=== PATIENT | female | born 1985 | race Caucasian/White ===

== ENCOUNTER → 2017-01-12 | Outpatient (CLI) | payer OTHER ==
[2017-01-12 12:11] LABS: CH 31.7; HDW 3.07; HGB 12.2 gm/dL (11.4-16.0); MCH 30.9 pg (25.0-35.0); MCHC 33.9 g/dL (31.0-37.0); MCV 91.1 fL (80.0-100.0); Mean Platelet Volume 7.9; RBC 3.95 m/uL (3.80-5.40); RDW 13.8 % (11.5-15.5); WBC 12.5 k/uL (3.8-10.6)
== END | disposition home or self-care (01) ==
LOC: LABWHC1 10:43
PROVIDERS: ATTEND Obstetrics & Gynecology
DX: Z34.82 Encounter for supervision of other normal pregnancy, second trimester (principal); Z3A.00 Weeks of gestation of pregnancy not specified
CPT/HCPCS: 36415; 82950; 85027

== ENCOUNTER → 2017-01-30 | Outpatient (CLI) | payer OTHER ==
--- NOTE | 2017-01-30 15:36 | US ---
EXAMINATION TYPE: US OB anatomy transabd DATE OF EXAM: 01/30/2017 2:39 PM COMPARISON: NONE HISTORY: LGA TECHNIQUE: Transabdominal (TA) EXAM MEASUREMENTS: GESTATIONAL AGE / DATING Physician Established: (29 weeks/0 days) EDC: 04/17/17 Dates by LMP: unknown Dates by First Scan: (29 weeks/0 days) EDC: 04/17/17 Dates by Current Scan for: (28 weeks/6 days) EDC: 04/18/17 SURVEY PLACENTA: Posterior PREVIA: No previa MONICA: 14.6 cm CERVICAL LENGTH (transabdominal: norm > 3.0cm):4.0 cm BIOMETRY PRESENTATION: Breech LIE: Transverse lie with head maternal R BPD: 7.3 cm 29 weeks / 1 days HC: 26.7 cm 29 weeks / 1 days AC: cm weeks / days FL: cm weeks / days ESTIMATED WEIGHT IN GRAMS: 1358 grams ESTIMATED WEIGHT IN LBS/OZS: 3 lbs. 0 oz. WEIGHT PERCENTAGE BASED ON ESTABLISHED DATE: 45 % HC/AC: 1.1 FL/AC: 22.3 HEART RATE: 157 bpm RHYTHM: Normal ANATOMY SEEN (within normal limits): * Cisterna Magna (< 1.1 cm) 0.4 cm * Nuchal Fold (< 0.6 cm) 0.5 cm * Cerebellum (varies with age) 3.2 cm Midline Falx Four Chamber Heart Outflow tracts: LVOT/RVOT Stomach Diaphragm Kidneys (bilateral) Bladder Three Vessel Cord Longitudinal Spine Transverse Spine Arms (bilateral) Legs (bilateral) ANATOMY NOT SEEN: Due to position/shadowing of bones. Lateral Vent (< 1 cm) cm Cord Insert Situs Nose / Lips Cavus Septi Pellucidi Choroid Plexus (bilateral) IMPRESSION: 1. Viable of 28 weeks 6 days with a EDC of 04/18/2017. 2. Limited assessment of some of the structures of the internal anatomy.
== END | disposition home or self-care (01) ==
LOC: RADUSWWP 13:52
PROVIDERS: ATTEND Obstetrics & Gynecology
DX: O36.63X0 Maternal care for excessive fetal growth, third trimester, not applicable or unspecified (principal); Z3A.28 28 weeks gestation of pregnancy
CPT/HCPCS: 76811

== ENCOUNTER → 2017-03-13 | Outpatient (CLI) | payer OTHER ==
--- NOTE | 2017-03-13 13:10 | US ---
EXAMINATION TYPE: US OB anatomy transabd DATE OF EXAM: 03/13/2017 12:52 PM COMPARISON: US 09/17/2016 HISTORY: [id number] SMALL FOR DATES SGA TECHNIQUE: EXAM MEASUREMENTS: GESTATIONAL AGE / DATING Physician Established: (35 weeks/0 days) EDC: 04/17/2017 Dates by LMP: Unknown Dates by First Scan: (35 weeks/0 days) EDC: 04/17/2017 Dates by Current Scan for: (35 weeks/0 days) EDC: 04/17/2017 SURVEY IUP: Single PLACENTA: Lateral extending anterior and posterior PREVIA: No previa MONICA: 11.9 cm Normal CERVICAL LENGTH (transabdominal: norm > 3.0cm): 3.8 cm BIOMETRY PRESENTATION: Breech LIE: Longitudinal BPD: 8.8 cm 35 weeks / 2 days HC: 31.5 cm 35 weeks / 2 days AC: 30.7 cm 34 weeks / 5 days FL: 6.9 cm 35 weeks / 3 days ESTIMATED WEIGHT IN GRAMS: 2578 grams ESTIMATED WEIGHT IN LBS/OZS: 5 lbs. 11 oz. WEIGHT PERCENTAGE BASED ON ESTABLISHED DATE: 48 % HC/AC: 1.02 Normal FL/AC: 22.49 Normal HEART RATE: 149 bpm RHYTHM: Normal ANATOMY SEEN (within normal limits): Midline Falx Cavus Septi Pellucidi Outflow tracts: RVOT Diaphragm Kidneys (bilateral) Bladder Cord Insert Three Vessel Cord Longitudinal Spine ANATOMY NOT SEEN: Due to advanced age, position and shadowing from bones. * Lateral Vent (< 1 cm) cm * Cisterna Magna (< 1.1 cm) cm * Nuchal Fold (< 0.6 cm) cm * Cerebellum (varies with age) cm Choroid Plexus (bilateral) Four Chamber Heart Outflow tracts: LVOT Stomach Situs Nose / Lips Transverse Spine Arms (bilateral) Legs (bilateral) IMPRESSION: Single IUP measuring 35 weeks 0 days with a heart rate of 149 bpm and a calculated EDC of 04/17/2017 based on current ultrasound measurements.
== END | disposition home or self-care (01) ==
LOC: RADUSWWP 12:22
PROVIDERS: ATTEND Obstetrics & Gynecology
DX: O36.5930 Maternal care for other known or suspected poor fetal growth, third trimester, not applicable or unspecified (principal); Z3A.35 35 weeks gestation of pregnancy
CPT/HCPCS: 76811

== ENCOUNTER 2017-04-10 05:55 | Inpatient (IN) | payer OTHER ==
--- NOTE | 2017-04-09 06:25 | P.HPOB ---
History of Present Illness H&P Date: 04/09/17 Chief Complaint: Breech presentation This patient is a pleasant 31-year-old 2 para 1 female estimated date of confinement 04/17/2017 estimated gestational age 39-0/7 weeks gestation who presents to labor and delivery for IOL of external cephalic version for persistent breech presentation. Patient is also planning on proceeding with section today if unsuccessful. Patient's initial ultrasound indicated that she may have a bicornate are arcuate uterus. Inspection however had not known this previously and the repeat ultrasound at 20 weeks did not show any evidence of a septum. She's been persistent breech and she understands that if she does have a septum this may be why she is breech however we did discuss trial of version and I think this is appropriate this time since were plan on proceeding with delivery either way. otherwise has been uncomplicated. She does have a history of questionable IUGR/SGA in her previous however this has had normal growth ultrasounds. Review of Systems Constitutional: Denies chills, Denies fever Ears, nose, mouth and throat: Denies headache, Denies sore throat Cardiovascular: Denies chest pain, Denies shortness of breath Respiratory: Denies cough Gastrointestinal: Reports heartburn Genitourinary: Reports Menstruation: Reports amenorrhea Musculoskeletal: Denies myalgias Integumentary: Denies pruritus, Denies rash Neurological: Denies numbness, Denies weakness Psychiatric: Denies anxiety, Denies depression Endocrine: Denies fatigue, Denies weight change Past Medical History Past Medical History: No Reported History History of Any Multi-Drug Resistant Organisms: None Reported Past Surgical History: No Surgical Hx Reported Past Anesthesia/Blood Transfusion Reactions: No Reported Reaction Past Psychological History: No Psychological Hx Reported Smoking Status: Never smoker Past Alcohol Use History: None Reported Past Drug Use History: None Reported Medications and Allergies Allergies Allergy/AdvReac Type Severity Reaction Status Date / Time No Known Allergies Allergy Verified 04/09/17 06:20 Exam - OBG Physical Exam Abdomen: bowel sounds normal, no diffuse tenderness, no bruit present, no guarding noted, no hepatomegaly, no splenomegaly, no mass Vulva: both: normal Vagina: normal moisture, no discharge Cervix: no lesion (Cervix in the office was closed.), no discharge Uterus: enlarged (Fundal height is consistent with a term .) Results blood work shows she is a positive, rubella immune, RPR nonreactive, hepatitis B negative, Glucola was normal, group B strep was negative, patient had a first trimester ultrasound that indicated possible bicornate uterus however this was not seen on subsequent ultrasounds. Assessment and Plan (1) Third trimester Narrative/Plan: This is a pleasant 31-year-old 2 para 1 female 39-0/7 weeks gestation with persistent breech presentation. There is some question as to whether or not the patient has a uterine septum. Patient and I have discussed this in detail throughout the at this time she would like to try an attempted external cephalic version and if unsuccessful will proceed with section. Patient understands if she does have a uterine septum this may be why the baby is breech and in general this is an indication that the version will not be successful. We do have a successful version and most likely proceed with induction for favorable cervix at that time. I have discussed the use version and section in detail with the patient and she understands risks and benefits of both. Status: Acute (2) Breech presentation Status: Acute
[2017-04-10 06:20] VITALS: BMI 35.6
[2017-04-10] MEDS ORDERED: CITRIC ACID-SODIUM CITRATE 15 ML CUP PO ONE (06:37)
[2017-04-10] MEDS ORDERED: LACTATED RINGERS 1,000 ML IV ONE (06:37)
--- NOTE | 2017-04-10 06:37 | P.PN ---
Progress Note - Text Patient presented this morning for an attempted external cephalic version. position was confirmed by ultrasound, IV was placed, heart tones are reactive, 2 attempts were made an external cephalic version without success. Patient tolerated well. Per our discussion the office we'll proceed with section for delivery at this time.
[2017-04-10] MEDS ORDERED: LACTATED RINGERS 1,000 ML IV SCH (06:45)
[2017-04-10 06:55] LABS: Basophils % (A) 0 %; CHCM 33.9; Eosinophils # (A) 0.1 k/uL (0-0.7); Eosinophils % (A) 1 %; HCT 34.1 % (34.0-46.0); HDW 3.15; HGB 11.3 gm/dL (11.4-16.0); Luc % (Auto) 2; Lymphocytes # (A) 2.3 k/uL (1.0-4.8); Lymphocytes % (A) 25 %; MCH 29.4 pg (25.0-35.0); MCHC 33.1 g/dL (31.0-37.0); MCV 88.9 fL (80.0-100.0); Monocytes # (A) 0.7 k/uL (0-1.0); Monocytes % (A) 8 %; Neutrophils % (A) 65 %; RBC 3.83 m/uL (3.80-5.40); RDW 13.8 % (11.5-15.5); WBC 9.3 k/uL (3.8-10.6); WBC (Perox) 9.77
[2017-04-10] MEDS ORDERED: ceFAZolin 2 GM in SODIUM CHLORIDE 0.9% 100 ML IVPB ONE (11:45)
[2017-04-10] MEDS ORDERED: NALBUPHINE 10 MG/ML AMPUL ONE (11:59)
[2017-04-10] MEDS ORDERED: KETOROLAC 30 MG/ML 1 ML VIAL ONE (11:59)
[2017-04-10] MEDS ORDERED: MORPHINE SULFATE (PF) 0.3 MG/0.3 ML SYR ONE (11:59)
[2017-04-10] MEDS ORDERED: OXYTOCIN 10 UNIT/ML 1 ML VIAL ONE (11:59)
[2017-04-10] MEDS ORDERED: ONDANSETRON 4 MG/2 ML VIAL IVP PRN (12:18)
[2017-04-10] MEDS ORDERED: NALOXONE 0.4 MG/ML 1 ML VIAL IV PRN ×2 (12:18→13:32)
[2017-04-10] MEDS ORDERED: MORPHINE SULFATE 4 MG/ML SYRINGE IVP PRN (12:18)
[2017-04-10] MEDS ORDERED: diphenhydrAMINE 50 MG/ML 1 ML VIAL IVP PRN ×2 (12:18→13:32)
--- NOTE | 2017-04-10 12:48 | P.OP ---
Date of Procedure: 04/10/17 Preoperative Diagnosis: #1: 39 weeks gestation. #2: Persistent breech presentation. Possible uterine septum Postoperative Diagnosis: Same Procedure(s) Performed: Primary low transverse section Implants: Anesthesia: spinal Surgeon: Hans Castanon Corn Shucker #1: Berna Abreu Estimated Blood Loss (ml): 800 Pathology: other Condition: stable (Placenta) Disposition: floor Indications for Procedure: Please see dictated H&P for intimate details of this patient's admission. Brief summary is a pleasant 31-year-old 2 para 1 female 39 weeks gestation who presented to labor and delivery this morning for an attempted external cephalic version. There is also a question of a uterine septum. Version was unsuccessful and therefore she now presents for primary section due to persistent breech. Patient understands this surgery and risks including risks of infection, bleeding, possible injury to bowel, bladder, vessels, and/or other organs. All the patient's questions are answered and a written consent is obtained. Operative Findings: This is a vigorous viable female infant Apgars 9 and 9 delivery time is 1213 hrs. has spontaneous respirations and good cry and grossly appeared normal. There was approximately 3-4 cm midline uterine septum. Description of Procedure: This patient has a Alvarado catheter placed to straight drain. She subsequently taken to the operating room where she is sat up and spinal anesthetic is administered without incident. With an adequate level of anesthesia she has abdominal prep and drape. Scalpels then taken and a Pfannenstiel skin incision is then made. A second scalpel is taken down the fascia and the fascia scored with a knife. Fascial incision extended bilaterally using the Villalba scissors. Fascia is dissected off the rectus muscles sharply. Rectus muscles are and the peritoneum was identified and entered sharply. Peritoneal incision extended superior and inferior without difficulty. Bladder blade is then placed. Bladder peritoneum was taken sharply off the lower uterine segment. Scalpels and taken a low transverse uterine incision is then made. Using a hemostat I into the uterine cavity bluntly. There is loss of clear fluid. This incision is extended bluntly. Inspection of the uterine cavity shows a to be a complete breech presentation. The infant's feet her guided through the incision with fundal pressure we have delivery of the using the usual breech maneuvers. There was a nuchal cord 1. The 's umbilical cord is then doubly clamped and cut it appears to be trivascular. The placenta is then manually extracted intact. Uterus is then externalized and the uterine edges demarcated with Umanzor clamps. Inspect the uterine cavity is clear of all placental products however there is a 2-3 cm uterine septum. This is a midline in position. The uterine incision is then closed using 0 Vicryl running locked fashion in 2 layers. Added sutures are placed on the left side for excellent hemostasis. The bladder peritoneum was then reapproximated using a 3-0 Vicryl again good hemostasis is noted. Excess fluid is removed from the abdomen and pelvis. The tubes and ovaries appear normal for term gestation. Uterus placed back into the abdomen. Parietal peritoneum was then closed using 0 Vicryl running fashion. The rectus muscles reapproximated in 0 Vicryl interrupted fashion. Fascia is then closed using 0 PDS. Fascial incision is intact and hemostatic. Subcutaneous tissues and closed using a 3-0 Vicryl. Skin is and closed using alonso. Sterile dressing is applied. All counts are correct 3. There are no complications. and mother are then taken to the birthing suite in satisfactory condition.
[2017-04-10] MEDS ORDERED: OXYTOCIN 20 UNITS/1000 ML NS 1,000 ML IV SCH (13:32)
[2017-04-10] MEDS ORDERED: ZOLPIDEM 5 MG TAB PO PRN (13:32)
[2017-04-10] MEDS ORDERED: ACETAMINOPHEN TAB 325 MG TAB PO PRN (13:32)
[2017-04-10] MEDS ORDERED: Acetaminophen-Codeine 300-30mg TAB PO PRN ×2 (13:32)
[2017-04-10] MEDS ORDERED: diphenhydrAMINE 25 MG CAP PO PRN (13:32)
[2017-04-10] MEDS ORDERED: METOCLOPRAMIDE 5 MG/ML 2 ML VIAL IVP PRN (13:32)
[2017-04-10] MEDS: LACTATED RINGERS 1,000 ML IV SCH ×2 (14:25→17:43)
[2017-04-10] MEDS ORDERED: KETOROLAC 30 MG/ML 1 ML VIAL IVP PRN (18:21)
[2017-04-10] MEDS: SENNOSIDES-DOCUSATE SODIUM 1 EACH TAB PO SCH (22:43)
--- NOTE | 2017-04-11 06:25 | P.PNOBGPC ---
Subjective - Subjective Patient reports: Reports appetite normal, Reports voiding normally, Reports pain well controlled, Reports ambulating normally : doing well Objective - Vital Signs Latest vital signs: Vital Signs Temp Pulse Resp BP Pulse Ox 04/11/17 04:00 98.3 F 72 16 112/52 04/11/17 00:00 98.7 F 81 16 120/52 04/10/17 20:00 98.1 F 78 18 119/72 04/10/17 16:02 83 18 103/61 98 04/10/17 14:41 97.0 F L 85 18 125/60 100 04/10/17 14:11 60 19 105/61 100 04/10/17 13:41 69 19 108/63 98 04/10/17 13:26 71 16 104/63 97 04/10/17 13:19 97 04/10/17 13:11 73 18 106/62 97 04/10/17 12:56 75 16 107/63 98 04/10/17 12:41 96.8 F L 80 17 104/62 96 Intake and Output 04/10/17 04/10/17 04/11/17 14:59 22:59 06:59 Intake Total 600 Output Total 200 650 Balance -200 -50 Intake: Oral 600 Output: Urine 200 650 Other: Voiding Method Indwelling Catheter Indwelling Catheter - Exam Lungs: bilateral: normal Chest: Normal S1, Normal S2 Extremities: Present: normal Abdomen: Present: normal appearance, soft. Absent: distention, tenderness Incision: Present: normal, dry, intact Uterus: Present: normal, firm - Labs Labs: Abnormal Lab Results - Last 24 Hours (Table) 04/10/17 Range/Units 06:15 Hgb 11.3 L (11.4-16.0) gm/dL Assessment and Plan (1) Third trimester Narrative/Plan: Post day #1. Patient is resting without complaints. Vital signs are stable she is afebrile. Uterus is firm nontender she has normal lochia. Her incision is intact and dry. Impression is a normal postoperative course. Plan is to continue routine care, check a CBC, encourage ambulation, advance her diet. Current Visit: Yes Status: Acute Code(s): Z33.1 - STATE, INCIDENTAL SNOMED Code(s): 99390474 (2) Breech presentation Current Visit: Yes Status: Acute Code(s): O32.1XX0 - MATERNAL CARE FOR BREECH PRESENTATION, UNSP SNOMED Code(s): 8795340
[2017-04-11] MEDS: SENNOSIDES-DOCUSATE SODIUM 1 EACH TAB PO SCH ×2 (07:54→20:43)
[2017-04-11] MEDS: SIMETHICONE 80 MG CHEWABLE PO PRN ×2 (07:54→20:43)
[2017-04-11 09:28] LABS: Basophils % (A) 0 %; CH 29.6; CHCM 33.8; Eosinophils % (A) 0 %; HCT 31.5 % (34.0-46.0); HDW 3.13; HGB 10.7 gm/dL (11.4-16.0); Luc # (Auto) 0.15; Luc % (Auto) 1; Lymphocytes # (A) 1.5 k/uL (1.0-4.8); Lymphocytes % (A) 12 %; MCH 29.9 pg (25.0-35.0); Mean Platelet Volume 7.8; Monocytes # (A) 0.5 k/uL (0-1.0); Monocytes % (A) 4 %; Neutrophils # (A) 9.9 k/uL (1.3-7.7); Neutrophils % (A) 82 %; RBC 3.58 m/uL (3.80-5.40); RDW 13.9 % (11.5-15.5); WBC (Perox) 12.79
--- NOTE | 2017-04-11 11:15 | P.PN ---
Progress Note - Text 0705 Anesthesia POD 1. Patient is status post section under spinal anesthesia with intra-thecal preservative free morphine 300 g. Mild pruritus, good post-op analgesia, and no headache or other complication.
[2017-04-11] MEDS ORDERED: ONDANSETRON 4 MG/2 ML VIAL IVP PRN (12:00)
[2017-04-11] MEDS: IBUPROFEN 600 MG TAB PO PRN (20:43)
[2017-04-11 22:55] VITALS: RESP 18
--- NOTE | 2017-04-12 06:24 | P.PNOBGPC ---
Subjective - Subjective Patient reports: Reports appetite normal, Reports voiding normally, Reports pain well controlled, Reports ambulating normally : doing well Objective - Vital Signs Latest vital signs: Vital Signs Temp Pulse Resp BP Pulse Ox 04/12/17 00:00 84 18 04/11/17 22:53 98.1 F 84 18 123/69 04/11/17 16:00 97.6 F 78 20 114/67 98 04/11/17 12:00 97.6 F 76 20 114/68 98 04/11/17 08:00 98.2 F 76 20 114/63 98 Intake and Output 04/11/17 04/11/17 04/12/17 14:59 22:59 06:59 Intake Total 360 600 950 Balance 360 600 950 Intake: Oral 360 600 950 Other: Voiding Method Toilet Toilet # Voids 1 2 - Exam Lungs: bilateral: normal Chest: Normal S1, Normal S2 Extremities: Present: normal Abdomen: Present: normal appearance, soft. Absent: distention, tenderness Incision: Present: normal, dry, intact Uterus: Present: normal, firm - Labs Labs: Abnormal Lab Results - Last 24 Hours (Table) 04/11/17 Range/Units 09:05 WBC 12.0 H (3.8-10.6) k/uL RBC 3.58 L (3.80-5.40) m/uL Hgb 10.7 L (11.4-16.0) gm/dL Hct 31.5 L (34.0-46.0) % Neutrophils # 9.9 H (1.3-7.7) k/uL Assessment and Plan (1) Third trimester Narrative/Plan: Postoperative day #2. Patient is resting without complaints and wishes to go home. Vital signs are stable she is afebrile. Uterus is firm nontender she's having normal lochia. My impression this is a normal postoperative course. Plan is to continue routine postoperative care discharge home later today. Current Visit: Yes Status: Acute Code(s): Z33.1 - STATE, INCIDENTAL SNOMED Code(s): 27535492 (2) Breech presentation Current Visit: Yes Status: Acute Code(s): O32.1XX0 - MATERNAL CARE FOR BREECH PRESENTATION, UNSP SNOMED Code(s): 8551749
--- NOTE | 2017-04-12 06:28 | P.DS ---
Providers Date of admission: 04/10/17 05:55 Expected date of discharge: 04/12/17 Attending physician: Hans Castanon Primary care physician: Stated None - Discharge Diagnosis(es) (1) Third trimester Current Visit: Yes Status: Acute (2) Breech presentation Current Visit: Yes Status: Acute Hospital Course: Please see dictated H&P for intimate details of this patient's admission. Brief summary this is a pleasant 31-year-old 2 para 1 female 39 weeks gestation who is admitted for persistent breech presentation. Patient had an attempted cephalic version that was unsuccessful and subsequently underwent a primary low transverse section for viable female infant. Patient was noted to have a uterine septum at the time of delivery. By postoperative #2 patient's felt to be stable for discharge home follow up with me in 1 week. Procedures: Primary low transverse section. Patient Condition at Discharge: Good Plan - Discharge Summary New Discharge Prescriptions: Acetaminophen-Codeine 300-30mg [Tylenol w/codeine #3] 1 - 2 each PO Q4HR PRN # 40 tab PRN Reason: Mild Pain Ibuprofen [Motrin] 600 mg PO Q6HR PRN #40 tab PRN Reason: Mild Pain Or Fever >= 100.5 Discharge Medication List Pnv,Calcium 72/Iron/Folic Acid [ Plus Tablet] 1 tab PO DAILY 04/10/17 [ History] Acetaminophen-Codeine 300-30mg [Tylenol w/codeine #3] 1 - 2 each PO Q4HR PRN # 40 tab 04/12/17 [Rx] Ibuprofen [Motrin] 600 mg PO Q6HR PRN #40 tab 04/12/17 [Rx] Follow up Appointment(s)/Referral(s): Hans Castanon MD [STAFF PHYSICIAN] - 04/17/17 8:45 am (Patient also has a post appointment on May 22 at 9:15 AM.) Patient Instructions/Handouts: (DC) Activity/Diet/Wound Care/Special Instructions: No strenuous activity or heavy lifting for 6 weeks. Please call if any fever, chills, excessive vaginal bleeding, and/or abdominal pain.
[2017-04-12] MEDS: SENNOSIDES-DOCUSATE SODIUM 1 EACH TAB PO SCH (08:09)
[2017-04-12] MEDS: IBUPROFEN 600 MG TAB PO PRN (08:10)
[2017-04-12 08:27] VITALS: BP 123/72; PULSE 72; TEMP 98.6
== END 2017-04-12 12:45 | disposition home or self-care (01) | DRG 766 ==
LOC: 4FBP 05:55
PROVIDERS: ADMIT Obstetrics & Gynecology; ATTEND Obstetrics & Gynecology
PROC: 10S0XZZ Reposition Products of Conception, External Approach (ICD-10-PCS; 2017-04-10)
PROC: 3E0S3NZ Introduction of Analgesics, Hypnotics, Sedatives into Epidural Space, Percutaneous Approach (ICD-10-PCS; 2017-04-10)
PROC: 10D00Z1 Extraction of Products of Conception, Low, Open Approach (ICD-10-PCS; principal; 2017-04-10 12:10)
DX: O32.1XX0 Maternal care for breech presentation, not applicable or unspecified (principal); O34.03 Maternal care for unspecified congenital malformation of uterus, third trimester; O34.593 Maternal care for other abnormalities of gravid uterus, third trimester; Q51.2 Other doubling of uterus; O69.81X0 Labor and delivery complicated by cord around neck, without compression, not applicable or unspecified; Z3A.39 39 weeks gestation of pregnancy; Z37.0 Single live birth
CPT/HCPCS: 85025; 86850; 86900; 86901; 88307

== ENCOUNTER → 2022-05-31 | Outpatient (CLI) | payer BC ==
[2022-05-31 13:49] VITALS: BP 113/75; PULSE 92; RESP 16; TEMP 98.9; BMI 40.4
--- NOTE | 2022-05-31 15:03 | P.HPBAR ---
Bariatric H&P - History & Physicial H&P Date: 05/31/22 History & Physicial: Visit/CC: Initial Patient initial contact: Initial weight: 110.223 kg Initial weight in pounds: 243.00 Height: 5 ft 5 in Initial BMI: 40.4 Last weight: Current weight: 110.223 kg Current weight in pounds: 243.00 Current BMI: 40.4 [place] body weight (based on NIH guidelines): 56.699 kg Excess body weight loss: 0.0% The patient is a 37 year-old F who presents for Bariatric Assessment. Patient here today for surgical assessment of weight loss. Patient is a relatively healthy 41-year-old female. Only significant comorbidity is GERD symptoms. Patient takes antacids on an as-needed basis for that. BMI today 40. No history of tobacco use. No DVT or dysphagia history. Only abdominal surgery is a . Patient states she actually was leaning towards gastric bypass. She was not aware that I did not perform that surgery. The reason for her choosing gastric bypass is because of her reflux history. Patient states she is finishing a 6 month supervised weight loss in the near future. Patient's weight was 269 but she started taking saxenda with fairly good results. She thinks her reflux is worse after starting that medication. Review of Systems The patient denies any acute changes in vision or hearing, no dysphagia or odynophagia, no chest pain or shortness of breath, no dysuria or hematuria, no headache, no runny nose, no rectal bleeding or melena, no unexplained weight loss Past Medical History Past Medical History: No Reported History History of Any Multi-Drug Resistant Organisms: None Reported Past Surgical History: No Surgical Hx Reported Past Anesthesia/Blood Transfusion Reactions: No Reported Reaction Past Psychological History: No Psychological Hx Reported Smoking Status: Unknown if ever smoked Past Alcohol Use History: None Reported Past Drug Use History: None Reported - Past Family History Mother Family Medical History: Cancer Additional Family Medical History / Comment(s): breast cancer in 2002 Surgical - Exam Vital Signs Temp Pulse Resp BP 98.9 F 92 16 113/75 05/31/22 13:46 05/31/22 13:46 05/31/22 13:46 05/31/22 13:46 Physical exam: General: Well-developed, well-nourished HEENT: Normocephalic, sclerae nonicteric Abdomen: Nontender, nondistended Extremities: No edema Neuro: Alert and oriented Bariatric Assessment & Plan (1) Morbid obesity with BMI of 40.0-44.9, adult Narrative/Plan: 37-year-old female presents with complaints of morbid obesity. She is interested in surgical weight loss. Patient initially is leaning towards gastric bypass. We discussed the risks and benefits of both procedures. It is encouraging that the patient is not taking daily antiacid therapy for her acid reflux. Certainly with sleeve gastrectomy her acid reflux could be exacerbated and could eventually lead to consideration for conversion to gastric bypass for control of those symptoms. Patient states she will consider her options further at this time. She will notify me if she would like to proceed with upper endoscopy as a preoperative assessment. Status: Acute Bariatric Checklist Checklist: Plan: Checklist: EGD: 1. Hiatal hernia: 2. H. Pylori: HgbA1c: Vitamin D: Smoking: Never smoker Primary care physician referral: SANDRO Psychiatry clearance: Cardiology clearance: Sleep study: Diet journal: VTE risk score: VTE risk level: Rehab needs at discharge:
== END ==
LOC: BARWHC3 13:32
PROVIDERS: ATTEND Surgery
DX: E66.01 Morbid (severe) obesity due to excess calories (principal); K21.9 Gastro-esophageal reflux disease without esophagitis; Z68.41 Body mass index [BMI] 40.0-44.9, adult
CPT/HCPCS: 99202

== ENCOUNTER 2022-07-17 10:33 | Day surgery (SDC) | payer BC ==
[~2022-07-17 10:33] MED LIST: LACTATED RINGERS 1,000 ML IV SCH
[2022-07-17 11:05] VITALS: TEMP 98.4
[2022-07-17] MEDS ORDERED: LIDOCAINE 2% INJ 20 MG/ML (2 ML VIAL) ONE (11:37)
[2022-07-17] MEDS ORDERED: PROPOFOL 10 MG/ML 20 ML VIAL IV ONE (11:37)
--- NOTE | 2022-07-17 11:44 | P.GSHP ---
History of Present Illness H&P Date: 07/17/22 Chief Complaint: GERD, presurgical 37-year-old female here today for upper endoscopy. She was seen in the bariatric center. Is interested in sleeve gastrectomy. Mild reflux at times. Past Medical History Past Medical History: No Reported History History of Any Multi-Drug Resistant Organisms: None Reported Past Surgical History: Section Past Anesthesia/Blood Transfusion Reactions: No Reported Reaction Past Psychological History: No Psychological Hx Reported Smoking Status: Never smoker Past Alcohol Use History: None Reported Past Drug Use History: None Reported - Past Family History Mother Family Medical History: Cancer Additional Family Medical History / Comment(s): breast cancer in 2002 Medications and Allergies Home Medications Medication Instructions Recorded Confirmed Type Liraglutide [Saxenda] 0.5 ml SQ DAILY 05/31/22 07/17/22 History Allergies Allergy/AdvReac Type Severity Reaction Status Date / Time No Known Allergies Allergy Verified 07/17/22 10:57 Surgical - Exam Vital Signs Temp Pulse Resp BP Pulse Ox 98.4 F 74 18 114/58 98 07/17/22 10:57 07/17/22 10:57 07/17/22 10:57 07/17/22 10:57 07/17/22 10:57 Physical exam: General: Well-developed, well-nourished HEENT: Normocephalic, sclerae nonicteric Abdomen: Nontender, nondistended Extremities: No edema Neuro: Alert and oriented Assessment and Plan (1) GERD (gastroesophageal reflux disease) Narrative/Plan: Will proceed with upper endoscopy Current Visit: Yes Status: Acute Code(s): K21.9 - GASTRO-ESOPHAGEAL REFLUX DISEASE WITHOUT ESOPHAGITIS SNOMED Code(s): 306113908
--- NOTE | 2022-07-17 11:52 | P.PCN ---
Date of Procedure: 07/17/22 Procedure(s) Performed: Preoperative Dx: GERD, presurgical Postoperative Dx: Mild gastritis Procedure: EGD with Bx Anesthesia: Sedation Endoscopist: Dr. Adkins Specimens: Antrum Endoscopic Procedure: The patient was on the endoscopy table in the left decubitus position. The Olympus gastroscope was inserted into the oropharynx and passed under direct visualization to the region of the third portion of the duodenum. From that point the scope was slowly withdrawn inspecting all surfaces carefully. There were no neoplastic inflammatory or polypoid lesions throughout the duodenum. The pylorus was widely patent. The stomach was carefully inspected. There was mild gastritis present. A biopsy of the antrum took place to rule out H. pylori. Retroflexion revealed a normal hiatus. The esophagus was then carefully examined. There were no neoplastic inflammatory or polypoid lesions throughout the visualized esophagus. The patient was then taken to the recovery room in stable condition per anesthesia guidelines. Recommendations: Resume diet. Await biopsies results. Follow-up bariatric clinic.
[2022-07-17 12:14] VITALS: PULSE 83
[2022-07-17 12:28] VITALS: BP 114/73; RESP 16
== END 2022-07-17 12:36 | disposition home or self-care (01) ==
LOC: ORWHC2ENDO 10:33
PROVIDERS: ATTEND Surgery
DX: K29.50 Unspecified chronic gastritis without bleeding (principal); K21.9 Gastro-esophageal reflux disease without esophagitis; E66.9 Obesity, unspecified; Z68.25 Body mass index [BMI] 25.0-25.9, adult; Z80.3 Family history of malignant neoplasm of breast; Z98.891 History of uterine scar from previous surgery; Z79.899 Other long term (current) drug therapy
CPT/HCPCS: 81025; 88305; 43239; J2704; J2001

== ENCOUNTER → 2022-07-31 | Outpatient (CLI) | payer BC ==
--- NOTE | 2022-07-31 16:32 | P.BASOAP ---
Subjective Progress Note Date: 07/31/22 Principal diagnosis: Morbid obesity 37-year-old female returns for bariatric assessment. She recently had her EGD performed showing mild gastritis. Patient remains interested in sleeve gastrectomy. Initially she was somewhat hesitant because of some reflux symptoms that she was experiencing. She later stated that her reflux was only after she started taking her saxenda and she also had some heartburn during . Otherwise she does not have history of chronic reflux. No changes to her recent history Objective - Exam Abdomen: Soft, nontender, nondistended Assessment/Plan (1) Morbid obesity with BMI of 40.0-44.9, adult Narrative/Plan: 37-year-old female with morbid obesity. Patient is interested in sleeve gastrectomy. Await psych eval to be performed later this evening and also upcoming medical clearance letter. We'll tentatively plan laparoscopic da Magan assisted sleeve gastrectomy in the next 1-2 months. The patient's surgical consent form was reviewed in detail. All questions answered. Patient is agreeable. Plan: Date: Initial Weight: 110.223 kg Initial BMI: Current Weight: Current BMI: Type of Surgery: Total Volume in Band: Previous Volume: Volume Removed: Volume Added: Band Size:
[2022-07-31 16:34] VITALS: BP 124/80; PULSE 73; RESP 16; TEMP 98.5; BMI 41.1
== END ==
LOC: BARWHC3 15:34
PROVIDERS: ATTEND Surgery
DX: E66.01 Morbid (severe) obesity due to excess calories (principal); Z68.41 Body mass index [BMI] 40.0-44.9, adult
CPT/HCPCS: 99211

== ENCOUNTER → 2022-08-13 | Outpatient (CLI) | payer BC ==
[2022-08-13 11:03] VITALS: BMI 40.2
== END ==
LOC: BARWHC3 08:39
PROVIDERS: ATTEND Surgery
DX: E66.01 Morbid (severe) obesity due to excess calories (principal); Z71.3 Dietary counseling and surveillance; K21.9 Gastro-esophageal reflux disease without esophagitis; Z68.41 Body mass index [BMI] 40.0-44.9, adult
CPT/HCPCS: 97804

== ENCOUNTER → 2022-10-03 | Outpatient (CLI) | payer BC ==
[2022-10-03 18:04] LABS: Basophils # (A) 0.04 X 10*3/uL (0.00-0.10); Basophils % (A) 0.4 %; Eosinophils # (A) 0.12 X 10*3/uL (0.04-0.35); Eosinophils % (A) 1.2 %; HCT 39.5 % (37.2-46.3); HGB 13.3 g/dL (12.0-15.0); Immature Grans, Automated 0.4 %; Lymphocytes # (A) 2.83 X 10*3/uL (0.90-5.00); Lymphocytes % (A) 28.8 %; MCHC 33.7 g/dL (32.0-37.0); Mean Platelet Volume 11.4 fL (9.5-12.2); Monocytes # (A) 0.67 X 10*3/uL (0.20-1.00); Monocytes % (A) 6.8 %; NRBC Per 100 WBC 0 /100 WBCS (0.0-0.0); Neutrophils # (A) 6.12 X 10*3/uL (1.80-7.70); Neutrophils % (A) 62.4 %; Platelet Count 254 X 10*3/uL (140-440); RBC 4.44 X 10*6/uL (4.10-5.20); RDW 12.2 % (11.5-14.5); WBC 9.82 X 10*3/uL (4.50-10.00)
[2022-10-03 18:28] LABS: African American GFR (CKD) 109.9 (60.0-200.0); Albumin 4.5 g/dL (3.8-4.9); Albumin/Globulin Ratio 1.88 (1.60-3.17); Anion Gap 11.9 mmol/L (10.00-18.00); BUN/Creat Ratio 13.88 Ratio (12.00-20.00); Blood Urea Nitrogen 11.1 mg/dL (9.0-27.0); Calcium 9.7 mg/dL (8.7-10.3); Carbon Dioxide 24.1 mmol/L (20.0-27.5); Globulin 2.4 g/dL (1.6-3.3); Non-African American GFR(CKD) 94.8 (60.0-200.0); Potassium 3.9 mmol/L (3.5-5.5); Total Bilirubin 0.5 mg/dL (0.30-1.20); Total Protein 6.9 g/dL (6.2-8.2)
== END | disposition home or self-care (01) ==
LOC: LABWHC1 12:56
PROVIDERS: ATTEND Surgery
DX: Z01.812 Encounter for preprocedural laboratory examination (principal)
CPT/HCPCS: 80053; 85025; 93005

== ENCOUNTER 2022-10-08 12:24 | Observation (INO) | payer BC ==
--- NOTE | 2022-10-08 09:02 | P.GSHP ---
History of Present Illness H&P Date: 10/08/22 Chief Complaint: Morbid obesity 37-year-old female initially seen in the office for bariatric consultation in May. Patient with BMI of 40.4 at the time. Patient with mild reflux symptoms. Patient says after starting saxenda her reflux was aggravated. No tobacco use. Past Medical History Past Medical History: GERD/Reflux Additional Past Medical History / Comment(s): pt stated "only reflux after starting saxenda", hx mild gastritis per Dr Adkins's Bariatric progress note. History of Any Multi-Drug Resistant Organisms: None Reported Past Surgical History: Section Additional Past Surgical History / Comment(s): EGD Past Anesthesia/Blood Transfusion Reactions: No Reported Reaction Additional Past Anesthesia/Blood Transfusion Reaction / Comment(s): no hx blood transfusion Past Psychological History: No Psychological Hx Reported Smoking Status: Never smoker Past Alcohol Use History: Occasional Past Drug Use History: None Reported - Past Family History Mother Family Medical History: Cancer, Thyroid Disorder Additional Family Medical History / Comment(s): breast cancer in 2002 Father Family Medical History: Cancer Additional Family Medical History / Comment(s): liver- 2017 Medications and Allergies Home Medications Medication Instructions Recorded Confirmed Type Famotidine [Pepcid] 40 mg PO DAILY PRN 10/02/22 10/02/22 History Allergies Allergy/AdvReac Type Severity Reaction Status Date / Time No Known Allergies Allergy Verified 10/02/22 11:23 Surgical - Exam Physical exam: General: Well-developed, well-nourished HEENT: Normocephalic, sclerae nonicteric Abdomen: Nontender, nondistended Extremities: No edema Neuro: Alert and oriented Assessment and Plan (1) Morbid obesity with BMI of 40.0-44.9, adult Narrative/Plan: 37-year-old female with morbid obesity. We'll proceed with laparoscopic da Magan-assisted sleeve gastrectomy, possible open. The risks of bleeding, infection, stenosis, stricture, leak, abscess, fistula formation, peritonitis, poor weight loss, reflux, vomiting, conversion to an open procedure, aborting sleeve gastrectomy, [place], PE, DVT, and were discussed. The patient understands and wishes to proceed. Status: Acute Code(s): E66.01 - MORBID (SEVERE) OBESITY DUE TO EXCESS CALORIES; Z68.41 - BODY MASS INDEX [BMI] 40.0-44.9, ADULT SNOMED Code(s): 816501248
[~2022-10-08 12:24] MED LIST changes: +ACETAMINOPHEN TAB 500 MG TAB PO PRN; +DEXAMETHASONE SOD PHOSPHATE 4 MG/ML 1 ML VIAL IV ONE; +ENOXAPARIN 40 MG/0.4 ML SYRINGE SQ PRN; +HYDROmorphone 0.5 MG/0.5 ML SYRINGE IVP PRN; -LACTATED RINGERS 1,000 ML IV SCH; +LIDOCAINE 1% (10MG/ML) FOR IV START INTRADERMA PRN; +MIDAZOLAM 2 MG/2 ML VIAL IV PRN; +ONDANSETRON 4 MG/2 ML VIAL IVP ONE; +ONDANSETRON 4 MG/2 ML VIAL IVP PRN
[2022-10-08] MEDS: LACTATED RINGERS 1,000 ML IV SCH (13:10)
[2022-10-08] MEDS ORDERED: LIDOCAINE 2% INJ 20 MG/ML (2 ML VIAL) ONE (14:18)
[2022-10-08] MEDS ORDERED: SUCCINYLCHOLINE CHLORIDE 200 MG/10 ML VIAL IV ONE (14:18)
[2022-10-08] MEDS ORDERED: KETOROLAC 15 MG/ML 1 ML VIAL ONE (14:18)
[2022-10-08] MEDS ORDERED: MIDAZOLAM 2 MG/2 ML VIAL ONE (14:18)
[2022-10-08] MEDS ORDERED: PROPOFOL 10 MG/ML 20 ML VIAL IV ONE (14:18)
[2022-10-08] MEDS ORDERED: GLYCOPYRROLATE 0.2 MG/ML 2 ML VIAL ONE (14:18)
[2022-10-08] MEDS ORDERED: NEOSTIGMINE 1 MG/ML 10 ML VIAL ONE (14:18)
[2022-10-08] MEDS ORDERED: ROCURONIUM 10 MG/ML (5 ML VIAL) IV ONE (14:18)
[2022-10-08] MEDS ORDERED: fentaNYL (PF) 50 MCG/ML 2 ML AMP ONE (14:18)
[2022-10-08] MEDS ORDERED: BUPIVACAIN-EPI 0.25%-1:200,000 30 ML VIAL SQ ONE ×2 (14:38)
[2022-10-08] MEDS ORDERED: HYOSCYAMINE ORAL DROPS 1.875 MG/15 ML BOTTLE PO PRN (16:07)
[2022-10-08] MEDS ORDERED: diphenhydrAMINE 50 MG/ML 1 ML VIAL IVP PRN (16:07)
[2022-10-08] MEDS ORDERED: NALOXONE 0.4 MG/ML 1 ML VIAL IV PRN (16:07)
[2022-10-08] MEDS ORDERED: SIMETHICONE 40 MG/0.6 ML DROPS 2,000 MG/30 ML BOTTLE PO PRN (16:07)
[2022-10-08] MEDS ORDERED: HYDROmorphone 0.5 MG/0.5 ML SYRINGE IVP PRN (16:07)
[2022-10-08] MEDS ORDERED: ONDANSETRON 4 MG/2 ML VIAL IVP ONE (16:09)
--- NOTE | 2022-10-08 16:12 | P.OP ---
Date of Procedure: 10/08/22 Procedure(s) Performed: PREOPERATIVE DIAGNOSIS: Morbid obesity, GERD POSTOPERATIVE DIAGNOSIS: Same PROCEDURE: Da Magan assisted laparoscopic sleeve gastrectomy SURGEON: Jed EBL: Minimal ANESTHESIA: General COMPLICATIONS: None OPERATIVE PROCEDURE: Patient was placed in the operating table in the supine po sition. The patient was then placed under general anesthesia at that time. The abdomen was prepped and draped in the usual sterile fashion. A 5 mm optical trocar was placed in the left upper quadrant 20 cm inferior to the xiphoid process. Insufflation took place up to 15 mmHg. No adhesions were seen. A 5 mm subxiphoid incision was made and the medium Cole retractor was used to elevate the left lobe of liver anteriorly. This was held in place using the fixed arm retractor. An additional 12 mm trocar was placed in the right paramedian location and 2 additional 8 mm trochars were placed in the left upper quadrant one medial and one lateral to the initially placed optical trocar. All of these trochars were placed along the same plane. The initial 5 was then switched to an 8 mm trocar. The robot was then docked appropriately. The 8 mm camera was placed in the left paramedian trocar site down viewing. A fenestrated bipolar was placed in arm 1, arm 3 had the vessel sealer, arm 4 had the small grasper retractor. The hiatus was inspected and there was no visible hiatal hernia. At that point I moved to the distal aspect of the greater curvature the stomach. The short gastric vasculature were divided using the vessel sealer. This dissection took place distally until we were 4 cm from the pylorus. The posterior adhesions were divided as well. The dissection then t ook place proximally along the stomach until the posterior short gastrics were divided and the fundus of the stomach was fully mobilized. Once the stomach was fully mobilized the blunt tipped 40-Amharic bougie dilator was advanced into the stomach and advanced all the way to the prepyloric location. The patient's stomach by palpation seemed to be of average thickness. No buttressing was utilized. The first 2 firings of the stapler were green loads the next 3 loads were blue and the final load was white. At the apex of our staple line there was a small area of bleeding that was controlled using a single 5 mm clip. The stomach was then placed in the right upper quadrant after it was fully excised. The oral gastric tube was reinserted. The stomach was insufflated with approximately 100 mL of methylene blue. No evidence of leak or obstruction was seen. There was no signs of bleeding. Tisseel fibrin glue was then used along the length of the staple line. The robot was then undocked. The da Magan laparoscope was used and the stomach was removed from the 12 mm trocar site without difficulty. The fascia at the 12mm site was closed using [id number] 0 Vicryl sutures with the laparoscopic suture passer and Ritesh Salinas technique. The insufflation was evacuated. The skin at all 5 incisions were closed using 4-0 Monocryl sutures. Skin glue was then applied. DISPOSITION: Stable to recovery room
[2022-10-08] MEDS ORDERED: LACTATED RINGERS 1,000 ML IV ONE (16:49)
[2022-10-08] MEDS: ACETAMINOPHEN IV (For NPO) 1,000 MG in EMPTY BAG 1 BAG IVPB SCH (19:40)
[2022-10-08] MEDS: ONDANSETRON 4 MG/2 ML VIAL IVP PRN (19:42)
[2022-10-08] MEDS: HYDROmorphone 1 MG/ML 1 ML SYRINGE IVP PRN ×2 (19:43→22:44)
[2022-10-08] MEDS: ALBUTEROL NEBULIZED 2.5 MG/3 ML INHALATION SCH (20:28)
[2022-10-08] MEDS: PANTOPRAZOLE 40 MG/10 ML VIAL IV SCH (20:51)
[2022-10-08] MEDS: 0.9% NACL WITH KCL 20 MEQ/L 1,000 ML IV SCH (21:18)
--- NOTE | 2022-10-08 21:35 | P.CONS ---
History of Present Illness - Reason for Consult Consult date: 10/08/22 Medical management Requesting physician: Bridger Adkins - Chief Complaint Sleeve gastrectomy - History of Present Illness This is a very pleasant 37-year-old patient, whose undergone sleeve gastrectomy by Dr. Pritchett for morbid obesity. Postprocedure some pain of the abdominal site. No nausea vomiting. On ice chips. Venodyne boots in place. Patient's mother at the bedside. Patient has some GERD and gastritis and constipation. Does take laxatives when necessary. Otherwise in good health. Review of systems: GEN.: Tired EYES: None HEENT: None NECK: None RESPIRATORY: None CARDIOVASCULAR: None GASTROINTESTINAL: As above GENITOURINARY: None MUSCULOSKELETAL: None LYMPHATICS: None HEMATOLOGICAL: None PSYCHIATRY: None NEUROLOGICAL: None Past medical history to include: GERD, gastritis, constipation Social history: Does not smoke. Alcohol occasionally. Has 2 children at home. Works at the data analyst report writer. Physical examination: VITAL SIGNS: 98.1, 99, 18, 1 10 x 67, 100% room air GENERAL: BMI 35.4, laying in bed awake not in distress. EYES: Pupils equal. Conjunctiva normal. HEENT: External appearance of nose and ears normal, oral cavity grossly normal. NECK: JVD not raised; masses not palpable. HEART: First and second heart sounds are normal; no edema. LUNGS: Respiratory rate normal; clear to auscultation. ABDOMEN: Soft, tender, no guarding rigidity, liver spleen not palpable, no masses palpable. PSYCH: Alert and oriented x3; mood and affect normal. MUSCULOSKELETAL:No Clubbing/cyanosis;muscles-grossly intact NEUROLOGICAL: Cranial nerves grossly intact; no facial asymmetry, power and sensation grossly intact. LYMPHATICS: No lymph nodes palpable in the axilla and neck INVESTIGATIONS, reviewed in the clinical context: WBC 9.8 hemoglobin 13.3 platelets 254 sodium 138 progression 3.9 creatinine 0.8 total bilirubin 0.5 AST 48 ALT 10 Assessment and plan: -Sleeve gastrectomy. On ice chips. Pain control. -Obesity Diet -GERD Pepcid -Mild gastritis Pepcid Patient will have upper GI tomorrow. I suspect. IV fluids. Pain control. Activity as tolerated. Venodyne boots. Care was discussed with the patient. Questions answered. Patient to follow-up with PCP upon discharge. Thank you we'll follow Past Medical History Past Medical History: GERD/Reflux Additional Past Medical History / Comment(s): pt stated "only reflux after starting saxenda", hx mild gastritis per Dr Adkins's Bariatric progress note. History of Any Multi-Drug Resistant Organisms: None Reported Past Surgical History: Section Additional Past Surgical History / Comment(s): EGD Past Anesthesia/Blood Transfusion Reactions: No Reported Reaction Additional Past Anesthesia/Blood Transfusion Reaction / Comm: no hx blood transfusion Past Psychological History: No Psychological Hx Reported Smoking Status: Never smoker Past Alcohol Use History: Occasional Past Drug Use History: None Reported - Past Family History Mother Family Medical History: Cancer, Thyroid Disorder Additional Family Medical History / Comment(s): breast cancer in 2002 Father Family Medical History: Cancer Additional Family Medical History / Comment(s): liver- 2017 Medications and Allergies Home Medications Medication Instructions Recorded Confirmed Type Famotidine [Pepcid] 40 mg PO DAILY PRN 10/02/22 10/08/22 History Allergies Allergy/AdvReac Type Severity Reaction Status Date / Time No Known Allergies Allergy Verified 10/08/22 12:45 Physical Exam Vitals: Vital Signs Temp Pulse Pulse Resp BP BP Pulse Ox 10/08/22 19:00 98.1 F 99 18 110/67 100 10/08/22 18:30 93 16 128/70 98 10/08/22 18:15 88 16 132/73 99 10/08/22 18:00 81 16 130/74 97 10/08/22 17:45 91 16 130/74 98 10/08/22 17:30 80 16 127/71 97 10/08/22 16:52 85 16 142/71 100 10/08/22 16:37 90 16 127/68 100 10/08/22 16:22 90 16 139/72 98 10/08/22 16:07 97.6 F 100 14 128/70 97 10/08/22 12:41 98.7 F 88 16 136/61 97 Intake and Output 10/08/22 10/08/22 10/08/22 06:59 14:59 22:59 Intake Total 750 750 Output Total 10 Balance 750 740 Intake: IV 750 750 Output: Estimated Blood Loss 10 Other: Weight 99.5 kg 99.5 kg
[2022-10-09] MEDS: ACETAMINOPHEN IV (For NPO) 1,000 MG in EMPTY BAG 1 BAG IVPB SCH ×3 (01:47→13:33)
[2022-10-09] MEDS: 0.9% NACL WITH KCL 20 MEQ/L 1,000 ML IV SCH ×3 (01:50→17:35)
[2022-10-09] MEDS ORDERED: ENOXAPARIN 40 MG/0.4 ML SYRINGE SQ SCH (02:15)
[2022-10-09] MEDS: LACTATED RINGERS 1,000 ML IV SCH (03:02)
[2022-10-09] MEDS: HYDROmorphone 1 MG/ML 1 ML SYRINGE IVP PRN ×2 (04:05→08:07)
[2022-10-09] MEDS: ENOXAPARIN 40 MG/0.4 ML SYRINGE SQ SCH ×2 (04:05→17:35)
[2022-10-09] MEDS: ONDANSETRON 4 MG/2 ML VIAL IVP PRN ×3 (04:12→15:08)
[2022-10-09] MEDS: PANTOPRAZOLE 40 MG/10 ML VIAL IV SCH (08:07)
[2022-10-09] MEDS: ALBUTEROL NEBULIZED 2.5 MG/3 ML INHALATION SCH ×4 (08:35→20:43)
[2022-10-09] MEDS: KETOROLAC 15 MG/ML 1 ML VIAL IVP SCH ×3 (09:39→21:25)
[2022-10-09 10:22] LABS: Basophils # (A) 0.02 X 10*3/uL (0.00-0.10); Basophils % (A) 0.1 %; Eosinophils # (A) 0 X 10*3/uL (0.04-0.35); Eosinophils % (A) 0 %; HCT 41.3 % (37.2-46.3); HGB 13.8 g/dL (12.0-15.0); Immature Grans, Automated 0.4 %; Lymphocytes # (A) 2.51 X 10*3/uL (0.90-5.00); Lymphocytes % (A) 15.3 %; MCH 29.7 pg (27.0-32.0); MCHC 33.4 g/dL (32.0-37.0); Mean Platelet Volume 11.9 fL (9.5-12.2); Monocytes # (A) 1.05 X 10*3/uL (0.20-1.00); Monocytes % (A) 6.4 %; NRBC Per 100 WBC 0 /100 WBCS (0.0-0.0); Neutrophils # (A) 12.78 X 10*3/uL (1.80-7.70); Neutrophils % (A) 77.8 %; Platelet Count 317 X 10*3/uL (140-440); RBC 4.64 X 10*6/uL (4.10-5.20); RDW 12.5 % (11.5-14.5); WBC 16.42 X 10*3/uL (4.50-10.00)
[2022-10-09 10:32] LABS: African American GFR (CKD) 109.9 (60.0-200.0); Blood Urea Nitrogen 7.7 mg/dL (9.0-27.0); Calcium 9.3 mg/dL (8.7-10.3); Non-African American GFR(CKD) 94.8 (60.0-200.0); Phosphorus 3.6 mg/dL (2.4-5.1); Potassium 4.5 mmol/L (3.5-5.5)
[2022-10-09] MEDS ORDERED: SCOPOLAMINE 1 MG/72 HR PATCH TRANSDERM SCH (11:00)
--- NOTE | 2022-10-09 11:21 | FL ---
SINGLE CONTRAST UPPER GI EXAMINATION: CLINICAL HISTORY: 37-year-old female postop bariatric surgery. TECHNIQUE: Single contrast exam performed with 25 ml Isovue-370 contrast. Total fluoroscopy time: 1043 seconds. Total images: 20. FINDINGS: The patient swallowed oral contrast without difficulty or delay. Esophageal peristalsis and motility are within normal limits. There is prompt passage of contrast from the esophagus into the stomach. Postsurgical changes of sleeve gastrectomy is demonstrated. Adequate passage of contrast across the g astric sleeve and eventually into the duodenum. There is no extravasation of contrast to suggest a le ak. No postoperative free air is seen on either side. IMPRESSION: No evidence of leak or significant obstruction status post sleeve gastrectomy.
--- NOTE | 2022-10-09 11:46 | P.PN ---
Subjective Progress Note Date: 10/09/22 CHIEF COMPLAINT: Morbid obesity HISTORY OF PRESENT ILLNESS: Patient is postop day #1 status post da Magan- assisted laparoscopic sleeve gastrectomy. Patient reports her pain is controlled. She is complaining of some nausea. The nausea has worsened since the upper GI. She was able to tolerate ice chips. No flatus. She denies any difficulty urinating. She has been up and ambulating. Upper GI shows no evidence of leak or obstruction. Afebrile. BP is on the low at 99/60. WBC 16.4 2 HGb 13.8 platelets 317 sodium 135 potassium is 4.5 creatinine 0.85 phos3.6 magnesium 2.0 PHYSICAL EXAM: VITAL SIGNS: Reviewed. GENERAL: Well-developed in no acute distress. HEENT: No sclera icterus. Extraocular movements grossly intact. Moist buccal mucosa. Head is atraumatic, normocephalic. ABDOMEN: Soft. Nondistended. Mild tenderness at incision sites. NEUROLOGIC: Alert and oriented. Cranial nerves II through XII grossly intact. ASSESSMENT: 1. Morbid obesity and GERD status post laparoscopic sleeve gastrectomy PLAN: -Advance diet to bariatric clear liquids -Continue IV fluids -Scopolamine patch added for nausea -Toradol added for pain control -repeat BP -Encourage patient to ambulate -Encourage patient to use incentive spirometer -GI prophylaxis Protonix and DVT prophylaxis Lovenox Physician Toddler Caregiver note has been reviewed by physician. Signing provider agrees with the documented findings, assessment, and plan of care. I have personally seen and examined the patient, reviewed the VISCERA WASHER /PAs history, exam and MDM and agree with the assessment and plan as written. Based on total visit time, I have performed more than 50% of the visit. As above: Patient doing well today. Mild nausea. Mild leukocytosis. Upper GI showed no evidence of leak or obstruction. Begin clear liquids. Continue ambulation. Objective - Vital Signs Vital signs: Vital Signs Temp 97.3 F L 10/09/22 07:35 Pulse 72 10/09/22 07:35 Resp 16 10/09/22 07:35 BP 99/60 10/09/22 07:35 Pulse Ox 96 10/09/22 07:35 FiO2 Intake & Output 10/08/22 10/09/22 10/09/22 18:59 06:59 18:59 Intake Total 1500 300 Output Total 10 Balance 1490 300 Weight 99.5 kg 99.5 kg Intake: IV 1500 Oral 300 Output: Estimated Blood Loss 10 Other: # Voids 1 - Labs CBC & Chem 7: 10/09/22 06:51 10/09/22 06:51 Labs: Abnormal Lab Results - Last 24 Hours (Table) 10/09/22 10/09/22 Range/Units 06:51 06:51 WBC 16.42 H (4.50-10.00) X 10*3/uL Immature Gran # 0.06 H (0.00-0.04) X 10*3/uL Neutrophils # 12.78 H (1.80-7.70) X 10*3/uL Monocytes # 1.05 H (0.20-1.00) X 10*3/uL Eosinophils # 0 L (0.04-0.35) X 10*3/uL Carbon Dioxide 18.0 L (20.0-27.5) mmol/L BUN 7.7 L (9.0-27.0) mg/dL
[2022-10-09 14:47] VITALS: BMI 35.4
--- NOTE | 2022-10-09 15:36 | P.PN ---
Progress Note - Text Progress Note Date: 10/09/22 - Chief Complaint Sleeve gastrectomy - History of Present Illness This is a very pleasant 37-year-old patient, whose undergone sleeve gastrectomy by Dr. Pritchett for morbid obesity. Postprocedure some pain of the abdominal site. No nausea vomiting. On ice chips. Venodyne boots in place. Patient's mother at the bedside. Patient has some GERD and gastritis and constipation. Does take laxatives when necessary. Otherwise in good health. 10/09/2022: Some abdominal pain. Some nausea. Had barium study this morning. Up to the bathroom. Active Medications Albuterol Sulfate (Albuterol Nebulized 2.5 Mg/3 Ml) 2.5 mg INHALATION RT-QID [facility] Stop: 11/07/22 20:01 Last Admin: 10/09/22 12:26 Dose: Not Given Bisacodyl (Bisacodyl 5 Mg Tablet.) 5 mg PO ONCE PRN PRN Reason: Constipation Stop: 11/09/22 08:01 Diphenhydramine HCl (Diphenhydramine 50 Mg/Ml 1 Ml Vial) 25 mg IVP Q6HR PRN PRN Reason: Itching Stop: 11/07/22 16:08 Enoxaparin Sodium (Enoxaparin 40 Mg/0.4 Ml Syringe) 40 mg SQ Q12H [facility] Last Admin: 10/09/22 04:05 Dose: 40 mg Hydromorphone HCl (Hydromorphone 0.5 Mg/0.5 Ml Syringe) 0.5 mg IVP Q3HR PRN PRN Reason: Moderate Pain (4 to 6) Stop: 11/07/22 16:08 Hydromorphone HCl (Hydromorphone 1 Mg/Ml 1 Ml Syringe) 1 mg IVP Q3HR PRN PRN Reason: Severe Pain (7 to 10) Stop: 11/07/22 16:08 Last Admin: 10/09/22 08:07 Dose: 1 mg Hyoscyamine (Hyoscyamine Oral Drops 1.875 Mg/15 Ml Bottle) 0.125 mg PO Q6HR PRN PRN Reason: Esophageal Spasm Stop: 11/07/22 16:08 Last Admin: 10/08/22 22:27 Dose: 0.125 mg Lactated Ringer's (Lactated Ringers) 1,000 mls @ 20 mls/hr IV .Q24H [facility] Stop: 11/07/22 06:09 Last Admin: 10/09/22 03:02 Dose: Not Given Potassium Chloride/Sodium Chloride (Ns-Kcl 20 Meq/L Iv Solution) 1,000 mls @ 100 mls/hr IV .Q10H [facility] Stop: 11/08/22 08:01 Last Admin: 10/09/22 08:07 Dose: 100 mls/hr Ketorolac Tromethamine (Ketorolac 15 Mg/Ml 1 Ml Vial) 15 mg IVP Q6H [facility] Stop: 10/12/22 08:50 Last Admin: 10/09/22 15:06 Dose: 15 mg Lidocaine HCl (Lidocaine 1% (10mg/Ml) For Iv Start) 0.1 ml INTRADERMA PER PROTOCOL PRN PRN Reason: IV Start Stop: 11/07/22 06:09 Naloxone HCl (Naloxone 0.4 Mg/Ml 1 Ml Vial) 0.2 mg IV Q2M PRN PRN Reason: Opioid Reversal Stop: 11/07/22 16:08 Ondansetron HCl (Ondansetron 4 Mg/2 Ml Vial) 4 mg IVP Q6HR PRN PRN Reason: Nausea And Vomiting Stop: 11/07/22 16:08 Last Admin: 10/09/22 15:08 Dose: 4 mg Pantoprazole Sodium (Pantoprazole 40 Mg/10 Ml Vial) 40 mg IV DAILY [facility] Stop: 11/07/22 20:01 Last Admin: 10/09/22 08:07 Dose: 40 mg Scopolamine (Scopolamine 1 Mg/72 Hr Patch) 1 patch TRANSDERM Q72H [facility] Last Admin: 10/09/22 11:28 Dose: 1 patch Simethicone (Simethicone 40 Mg/0.6 Ml Drops 2,000 Mg/30 Ml Bottle) 40 mg PO Q6HR PRN PRN Reason: Bloating Stop: 11/07/22 16:08 Past medical history to include: GERD, gastritis, constipation Social history: Does not smoke. Alcohol occasionally. Has 2 children at home. Works at the mortgage clerk. Physical examination: VITAL SIGNS: 97.3, 72, 16, 99% 60, 96% room air GENERAL: BMI 35.4, laying in bed awake comfortable EYES: Pupils equal. Conjunctiva normal. HEENT: External appearance of nose and ears normal, oral cavity grossly normal. NECK: JVD not raised; masses not palpable. HEART: First and second heart sounds are normal; no edema. LUNGS: Respiratory rate normal; clear to auscultation. ABDOMEN: Soft, mild tender, no guarding rigidity, liver spleen not palpable, no masses palpable. PSYCH: Alert and oriented x3; mood and affect normal. INVESTIGATIONS, reviewed in the clinical context: Upper GI series: Unremarkable 10/09/2022: White count 16.4 hemoglobin 13.8 potassium 4.5 creatinine 0.8 WBC 9.8 hemoglobin 13.3 platelets 254 sodium 138 progression 3.9 creatinine 0.8 total bilirubin 0.5 AST 48 ALT 10 Assessment and plan: -Sleeve gastrectomy. Pediatric clear liquid diet.. Pain control. Upper GI series unremarkable. -Nausea likely from pain medication Antiemetics -Obesity Diet -GERD Pepcid -Mild gastritis Pepcid Upper GI series unremarkable. Advanced to clear liquid diet. Increase activity. Discussed with patient. Thank you we'll follow
[2022-10-10] MEDS: LACTATED RINGERS 1,000 ML IV SCH (02:57)
[2022-10-10] MEDS: KETOROLAC 15 MG/ML 1 ML VIAL IVP SCH ×2 (03:00→10:25)
[2022-10-10] MEDS: ENOXAPARIN 40 MG/0.4 ML SYRINGE SQ SCH (05:34)
[2022-10-10] MEDS: 0.9% NACL WITH KCL 20 MEQ/L 1,000 ML IV SCH (05:35)
[2022-10-10 07:45] VITALS: BP 93/55; PULSE 64; RESP 15; TEMP 98.3
[2022-10-10] MEDS ORDERED: bisacodyL 5 MG TABLET.DR PO PRN (08:00)
[2022-10-10] MEDS: ALBUTEROL NEBULIZED 2.5 MG/3 ML INHALATION SCH ×2 (08:36→12:29)
[2022-10-10] MEDS: PANTOPRAZOLE 40 MG/10 ML VIAL IV SCH (10:26)
[2022-10-10 10:30] LABS: Basophils # (A) 0.03 X 10*3/uL (0.00-0.10); Basophils % (A) 0.4 %; Eosinophils # (A) 0.13 X 10*3/uL (0.04-0.35); Eosinophils % (A) 1.8 %; HCT 34.1 % (37.2-46.3); HGB 11.3 g/dL (12.0-15.0); Immature Grans, Automated 0.3 %; Lymphocytes # (A) 2.11 X 10*3/uL (0.90-5.00); Lymphocytes % (A) 29.4 %; MCH 29.7 pg (27.0-32.0); MCHC 33.1 g/dL (32.0-37.0); MCV 89.7 fL (80.0-97.0); Mean Platelet Volume 11.6 fL (9.5-12.2); Monocytes # (A) 0.49 X 10*3/uL (0.20-1.00); Monocytes % (A) 6.8 %; NRBC Per 100 WBC 0 /100 WBCS (0.0-0.0); Neutrophils # (A) 4.39 X 10*3/uL (1.80-7.70); Neutrophils % (A) 61.3 %; Platelet Count 216 X 10*3/uL (140-440); RDW 12.8 % (11.5-14.5); WBC 7.17 X 10*3/uL (4.50-10.00)
--- NOTE | 2022-10-10 11:14 | P.DS ---
Providers Date of admission: 10/09/22 02:58 Expected date of discharge: 10/10/22 Attending physician: Bridger Adkins Consults: 10/08/22 16:07 Consult Physician Routine Consulting Provider: John Harman Consult Reason/Comments: Medical management Do you want consulting provider notified?: Yes Primary care physician: Stated None Hospital Course: 37 row female admitted 2 days ago for elective laparoscopic sleeve gastrectomy. Postoperatively the patient has done well. Upper GI shows no leak or obstruction. Tolerating 20 ounces of liquids already this morning. No signific ant pain. No nausea. She has been ambulating over 1/2 mile per day. Patient would like to go home today. We'll discharge. Follow-up one week. Plan - Discharge Summary Discharge Rx Participant: No New Discharge Prescriptions: Continue Famotidine [Pepcid] 40 mg PO DAILY PRN PRN Reason: reflux Discharge Medication List Famotidine [Pepcid] 40 mg PO DAILY PRN 10/02/22 [History]
--- NOTE | 2022-10-10 17:38 | P.PN ---
Progress Note - Text Progress Note Date: 10/10/22 - Chief Complaint Sleeve gastrectomy Hospital course: This is a very pleasant 37-year-old patient, whose undergone sleeve gastrectomy by Dr. Pritchett for morbid obesity. Postprocedure some pain of the abdominal site. No nausea vomiting. On ice chips. Venodyne boots in place. Patient's mother at the bedside. Patient has some GERD and gastritis and constipation. Does take laxatives when necessary. Otherwise in good health. 10/09/2022: Some abdominal pain. Some nausea. Had barium study this morning. Up to the bathroom. 10/10/2022: Doing well. Tolerating a liquid diet. No nausea. Did ambulate.. Care was discussed with the patient. Current medications reviewed Past medical history to include: GERD, gastritis, constipation Social history: Does not smoke. Alcohol occasionally. Has 2 children at home. Works at the receptionist scheduler. Physical examination: VITAL SIGNS: He 8.3, 64, 15, 93/55, 90% room air GENERAL: Declining, comfortable EYES: Pupils equal. Conjunctiva normal. HEENT: External appearance of nose and ears normal, oral cavity grossly normal. NECK: JVD not raised; masses not palpable. HEART: First and second heart sounds are normal; no edema. LUNGS: Respiratory rate normal; clear to auscultation. ABDOMEN: Soft, minimal tender, no guarding rigidity, liver spleen not palpable, no masses palpable. PSYCH: Alert and oriented x3; mood and affect normal. INVESTIGATIONS, reviewed in the clinical context: 10/10/2022: WBC 7.1 hemoglobin 11.3 platelets 16 Upper GI series: Unremarkable 10/09/2022: White count 16.4 hemoglobin 13.8 potassium 4.5 creatinine 0.8 WBC 9.8 hemoglobin 13.3 platelets 254 sodium 138 progression 3.9 creatinine 0.8 total bilirubin 0.5 AST 48 ALT 10 Assessment and plan: -Sleeve gastrectomy. Pediatric clear liquid diet.. Pain control. Upper GI series unremarkable. -Nausea likely from pain medication: Improved Antiemetics -Obesity Diet -GERD Pepcid -Mild gastritis Pepcid Discussed with patient. Follow-up with PCP over discharge. Thank you
== END 2022-10-10 13:26 ==
LOC: OR 12:24 → 4SSUR 19:01 → OR 10-09 02:58
PROVIDERS: ADMIT Surgery; ATTEND Surgery
DX: E66.9 Obesity, unspecified (principal); K29.50 Unspecified chronic gastritis without bleeding; K21.9 Gastro-esophageal reflux disease without esophagitis; K59.00 Constipation, unspecified; D72.829 Elevated white blood cell count, unspecified; Z80.3 Family history of malignant neoplasm of breast; Z80.0 Family history of malignant neoplasm of digestive organs; Z68.35 Body mass index [BMI] 35.0-35.9, adult
CPT/HCPCS: 96376 ×2; 96365; 96366 ×2; 96372 ×2; 96375; 96368; 97161; 81025; 86900; 86901; 80051; 82310; 82565; 83735; 84100; 84520; 85025 ×2; 86850; 88307; 74240; 43775; G0378 ×2; C1762; J2250; J0330; J1100; J2710; J0690; J2405 ×2; J1650 ×3; J3010; J1170 ×3; J0131 ×2; J1885 ×3; J2704; C9113 ×3; Q9967; J1790; J2001

== ENCOUNTER → 2022-10-16 | Outpatient (CLI) | payer BC ==
[2022-10-16 13:21] VITALS: BP 113/78; PULSE 83; RESP 16; TEMP 98.3; BMI 35.1
--- NOTE | 2022-10-16 18:20 | P.BASOAP ---
Subjective Progress Note Date: 10/16/22 Principal diagnosis: Morbid obesity Patient returns for 1 week post sleeve gastrectomy evaluation. Doing well. Mild incisional pain on the right hand side. That is improved. With drinking the patient was having some mild dysphagia and tightness sensation but that has improved daily. She is drinking approximate 60-70 ounces of liquids daily. She is having one half to 2 protein shakes containing 45-60 g of protein daily. No reflux. No nausea. Objective - Vital Signs Vital signs: Vital Signs Temp 98.3 F 10/16/22 13:18 Pulse 83 10/16/22 13:18 Resp 16 10/16/22 13:18 BP 113/78 10/16/22 13:18 Pulse Ox FiO2 Intake & Output 10/15/22 10/16/22 10/16/22 18:59 06:59 18:59 Weight 95.708 kg - Exam Abdomen: Soft, nondistended, incisions clean and dry, minimal tenderness Assessment/Plan (1) Morbid obesity Narrative/Plan: Patient doing well at this time. Continue liquid diet. Increase activity. Increase protein intake to greater than 60 g per day. Patient will be seen by dietary today. Follow-up one week. Plan: Date: 10/16/22 Initial Weight: 110.223 kg Initial BMI: 40.4 Current Weight: 95.708 kg Current BMI: 35.1 Type of Surgery: Vertical Sleeve Gastrectomy Total Volume in Band: Previous Volume: Volume Removed: Volume Added: Band Size:
== END ==
LOC: BARWHC3 13:11
PROVIDERS: ATTEND Surgery
DX: E66.01 Morbid (severe) obesity due to excess calories (principal); Z71.3 Dietary counseling and surveillance; Z48.815 Encounter for surgical aftercare following surgery on the digestive system; Z98.84 Bariatric surgery status; Z68.35 Body mass index [BMI] 35.0-35.9, adult
CPT/HCPCS: 97802; 99211

== ENCOUNTER → 2022-10-23 | Outpatient (CLI) | payer BC ==
[2022-10-23 13:45] VITALS: BP 109/74; PULSE 82; RESP 16; TEMP 97.6; BMI 34.7
--- NOTE | 2022-10-23 15:40 | P.BASOAP ---
Subjective Progress Note Date: 10/23/22 Principal diagnosis: morbid obesity 37-year-old female returns after recent sleeve gastrectomy. She has lost 7 pounds since last visit. No pain. She is doing better with her drinking and has been drinking over 70 ounces of liquids daily. Over 60 g of protein daily. No heartburn. Rare nausea. Objective - Vital Signs Vital signs: Vital Signs Temp 97.6 F 10/23/22 13:43 Pulse 82 10/23/22 13:43 Resp 16 10/23/22 13:43 BP 109/74 10/23/22 13:43 Pulse Ox FiO2 Intake & Output 10/22/22 10/23/22 10/23/22 18:59 06:59 18:59 Weight 94.801 kg - Exam Abdomen: Soft, nontender, nondistended, incisions clean and dry Assessment/Plan (1) Morbid obesity Narrative/Plan: patient doing well at this time. Continue gradually increasing diet. May return to work. Recheck 2-3 weeks. Check one month labs at that time. Plan: Date: 10/23/22 Initial Weight: 110.223 kg Initial BMI: 40.4 Current Weight: 94.801 kg Current BMI: 34.7 Type of Surgery: Vertical Sleeve Gastrectomy Total Volume in Band: Previous Volume: Volume Removed: Volume Added: Band Size:
== END ==
LOC: BARWHC3 13:34
PROVIDERS: ATTEND Surgery
DX: Z48.815 Encounter for surgical aftercare following surgery on the digestive system (principal); E66.01 Morbid (severe) obesity due to excess calories; Z68.34 Body mass index [BMI] 34.0-34.9, adult; Z98.84 Bariatric surgery status
CPT/HCPCS: 99211

== ENCOUNTER → 2022-11-13 | Outpatient (CLI) | payer BC ==
[2022-11-13 14:22] VITALS: BP 111/61; PULSE 62; RESP 16; TEMP 98.1; BMI 34.1
--- NOTE | 2022-11-13 14:44 | P.BASOAP ---
Subjective Progress Note Date: 11/13/22 Principal diagnosis: Morbid obesity Patient returns for recheck. She was last seen on 10/23. Doing well since that time. Her family did have a stomach flu but no further nausea and vomiting after that. She is due for one month labs. 5 pound weight loss since last visit. Objective - Vital Signs Vital signs: Vital Signs Temp 98.1 F 11/13/22 14:20 Pulse 62 11/13/22 14:20 Resp 16 11/13/22 14:20 BP 111/61 11/13/22 14:20 Pulse Ox FiO2 Intake & Output 11/12/22 11/13/22 11/13/22 18:59 06:59 18:59 Weight 92.986 kg - Exam Abdomen: Soft, nontender, nondistended, incisions clean and dry Assessment/Plan (1) Morbid obesity Narrative/Plan: Patient doing well at this time. Continue dietary and exercise regimen. Check one month labs. Follow-up 4-6 weeks. Plan: Date: 11/13/22 Initial Weight: 110.223 kg Initial BMI: 40.4 Current Weight: 92.986 kg Current BMI: 34.1 Type of Surgery: Total Volume in Band: Previous Volume: Volume Removed: Volume Added: Band Size:
== END ==
LOC: BARWHC3 13:59
PROVIDERS: ATTEND Surgery
DX: E66.01 Morbid (severe) obesity due to excess calories (principal); Z68.34 Body mass index [BMI] 34.0-34.9, adult
CPT/HCPCS: 97803; 99211

== ENCOUNTER → 2022-11-17 | Outpatient (CLI) | payer BC ==
[2022-11-17 17:22] LABS: HCT 39.2 % (37.2-46.3); HGB 13.6 g/dL (12.0-15.0); MCH 30.8 pg (27.0-32.0); MCHC 34.7 g/dL (32.0-37.0); MCV 88.7 fL (80.0-97.0); Mean Platelet Volume 11.7 fL (9.5-12.2); NRBC Per 100 WBC 0 /100 WBCS (0.0-0.0); Platelet Count 244 X 10*3/uL (140-440); RBC 4.42 X 10*6/uL (4.10-5.20); RDW 12.9 % (11.5-14.5); WBC 5.39 X 10*3/uL (4.50-10.00)
[2022-11-17 18:17] LABS: % Iron Saturation 30.19 (12.00-45.00); African American GFR (CKD) 101.9 (60.0-200.0); Albumin 4.6 g/dL (3.8-4.9); Albumin/Globulin Ratio 1.81 (1.60-3.17); Anion Gap 10.7 mmol/L (10.00-18.00); BUN/Creat Ratio 10.53 Ratio (12.00-20.00); Calcium 9.6 mg/dL (8.7-10.3); Carbon Dioxide 24.4 mmol/L (20.0-27.5); Ferritin 93.1 ng/mL (10.0-291.0); Globulin 2.5 g/dL (1.6-3.3); Non-African American GFR(CKD) 87.9 (60.0-200.0); Potassium 3.8 mmol/L (3.5-5.5); Total Protein 7.1 g/dL (6.2-8.2)
== END | disposition home or self-care (01) ==
LOC: LABWHC1 11:37
PROVIDERS: ATTEND Surgery
DX: E66.01 Morbid (severe) obesity due to excess calories (principal); K90.89 Other intestinal malabsorption; E55.9 Vitamin D deficiency, unspecified
CPT/HCPCS: 36415; 80053; 82306; 82607; 82728; 82746; 83540; 83550; 84425; 85027

== ENCOUNTER → 2023-03-12 | Outpatient (CLI) | payer BC ==
[2023-03-12 14:15] VITALS: BP 110/72; PULSE 54; RESP 16; TEMP 98.2; BMI 30.6
--- NOTE | 2023-03-12 16:31 | P.BASOAP ---
Subjective Progress Note Date: 03/12/23 Principal diagnosis: Morbid obesity Patient returns for recheck. She has done quite well. Exercising 3 times per week with weights. Walking significantly more than she used to. 10 pound weight loss since last visit. Only taking antacids on a when necessary basis usually less than once a week. Recent labs showed vitamin B1 up to 31 and vitamin D slightly increased as well. Objective - Vital Signs Vital signs: Vital Signs Temp 98.2 F 03/12/23 14:13 Pulse 54 L 03/12/23 14:13 Resp 16 03/12/23 14:13 BP 110/72 03/12/23 14:13 Pulse Ox FiO2 Intake & Output 03/11/23 03/12/23 03/12/23 18:59 06:59 18:59 Weight 83.461 kg - Exam Abdomen: Soft, nontender, nondistended Assessment/Plan (1) Morbid obesity Narrative/Plan: 37 row female doing well after previously gastrectomy. Patient's labs are improved. Continue vitamin supplementation. Recheck 6-8 weeks. We'll check repeat labs at that time. Continue dietary and exercise regimen. Plan: Date: 03/12/23 Initial Weight: 110.223 kg Initial BMI: 40.4 Current Weight: 83.461 kg Current BMI: 30.6 Type of Surgery: Vertical Sleeve Gastrectomy Total Volume in Band: Previous Volume: Volume Removed: Volume Added: Band Size:
== END ==
LOC: BARWHC3 13:32
PROVIDERS: ATTEND Surgery
DX: E66.01 Morbid (severe) obesity due to excess calories (principal); Z98.84 Bariatric surgery status; Z68.30 Body mass index [BMI] 30.0-30.9, adult
CPT/HCPCS: 97803; 99211

== ENCOUNTER → 2023-04-23 | Outpatient (CLI) | payer BC ==
[2023-04-23 13:11] VITALS: BP 108/66; PULSE 54; RESP 16; TEMP 98.1; BMI 29.4
--- NOTE | 2023-04-23 13:25 | P.BASOAP ---
Subjective Progress Note Date: 04/23/23 Principal diagnosis: Morbid obesity Patient returns for recheck. She was last seen in February. Still taking antiacids as needed. Only took 2 times since her last visit. She is walking and biking. She is due for 6 month labs. Recent B1 level was low normal at 31. Objective - Vital Signs Vital signs: Vital Signs Temp 98.1 F 04/23/23 13:09 Pulse 54 L 04/23/23 13:09 Resp 16 04/23/23 13:09 BP 108/66 04/23/23 13:09 Pulse Ox FiO2 Intake & Output 04/22/23 04/23/23 04/23/23 18:59 06:59 18:59 Weight 80.286 kg - Exam Abdomen: Soft, nontender, nondistended Assessment/Plan (1) Morbid obesity Narrative/Plan: 38-year-old female doing well at this time. Continue dietary and exercise regimen. Check 6 month labs. Recheck 2 months. Plan: Date: 04/23/23 Initial Weight: 110.223 kg Initial BMI: 40.4 Current Weight: 80.286 kg Current BMI: 29.4 Type of Surgery: Vertical Sleeve Gastrectomy Total Volume in Band: Previous Volume: Volume Removed: Volume Added: Band Size:
== END ==
LOC: BARWHC3 12:57
PROVIDERS: ATTEND Surgery
DX: E66.01 Morbid (severe) obesity due to excess calories (principal); Z71.3 Dietary counseling and surveillance; Z68.29 Body mass index [BMI] 29.0-29.9, adult; Z98.84 Bariatric surgery status
CPT/HCPCS: 97803; 99211

== ENCOUNTER → 2023-07-12 | Outpatient (CLI) | payer BC ==
[2023-07-13 01:45] LABS: HCT 37.4 % (37.2-46.3); MCH 30.5 pg (27.0-32.0); MCHC 32.1 d/dL (32.0-37.0); MCV 95.2 FL (80.0-97.0); Mean Platelet Volume 11.2 FL (9.5-12.2); NRBC Per 100 WBC 0 X 10*3/uL (0.00-0.01); Platelet Count 218 X 10*3/uL (140-440); RBC 3.93 X 10*6/uL (4.10-5.20); RDW 12.2 % (11.5-14.5); WBC 7.83 X 10*3/uL (4.50-10.00)
[2023-07-13 10:10] LABS: ALT 12 U/L (8-44); AST 15 U/L (13-35); Albumin 4.4 d/dL (3.8-4.9); Albumin/Globulin Ratio 1.83 Ratio (1.60-3.17); Alkaline Phosphatase 54 U/L (41-126); BUN/Creat Ratio 13.56 Ratio (12.00-20.00); Blood Urea Nitrogen 12.2 mg/dL (9.0-27.0); Calcium 9.3 mg/dL (8.7-10.3); Carbon Dioxide 24.3 mmol/L (21.6-31.8); Chloride 106 mmol/L (96-109); Globulin 2.4 d/dL (1.6-3.3); Glucose 86 mg/dL (70-110); Sodium 140 mmol/L (135-145); Total Bilirubin 0.3 mg/dL (0.3-1.2); Total Protein 6.8 d/dL (6.2-8.2)
[2023-07-13 12:09] LABS: Iron 81 UG/DL (50-170)
== END | disposition home or self-care (01) ==
LOC: LABWHC1 16:11
PROVIDERS: ATTEND Surgery
DX: E55.9 Vitamin D deficiency, unspecified (principal); E66.01 Morbid (severe) obesity due to excess calories; K90.89 Other intestinal malabsorption
CPT/HCPCS: 36415; 80053; 82306; 82607; 82746; 83540; 84425; 85027

== ENCOUNTER → 2023-07-16 | Outpatient (CLI) | payer BC ==
[2023-07-16 16:10] VITALS: BP 108/56; PULSE 57; BMI 28.9
--- NOTE | 2023-07-16 16:52 | P.BASOAP ---
Subjective Progress Note Date: 07/16/23 Principal diagnosis: Morbid obesity Patient returns for recheck. Doing well since last visit. Sleeve gastrectomy last September. Recent labs showed mildly low vitamin D. Still taking antacids occasionally. No vomiting. She has lost 3 pounds since her last visit. Objective - Vital Signs Vital signs: Vital Signs Temp Pulse 57 L 07/16/23 16:04 Resp BP 108/56 07/16/23 16:04 Pulse Ox FiO2 Intake & Output 07/15/23 07/16/23 07/16/23 18:59 06:59 18:59 Weight 78.925 kg - Exam Abdomen: Soft, nontender, nondistended Assessment/Plan (1) Morbid obesity Narrative/Plan: Patient doing well at this time. Continue dietary and exercise regimen. Plan recheck follow-up in September. Plan: Date: 07/16/23 Initial Weight: 110.223 kg Initial BMI: 40.4 Current Weight: 78.925 kg Current BMI: 28.9 Type of Surgery: Total Volume in Band: Previous Volume: Volume Removed: Volume Added: Band Size:
== END ==
LOC: BARWHC3 15:26
PROVIDERS: ATTEND Surgery
DX: E66.01 Morbid (severe) obesity due to excess calories (principal); Z71.3 Dietary counseling and surveillance; Z98.84 Bariatric surgery status; Z68.29 Body mass index [BMI] 29.0-29.9, adult
CPT/HCPCS: 99211

== ENCOUNTER → 2023-10-15 | Outpatient (CLI) | payer BC ==
--- NOTE | 2023-10-15 15:29 | P.BASOAP ---
Subjective Progress Note Date: 10/15/23 Principal diagnosis: Morbid obesity Patient returns for recheck. Last seen in June. She is 1 year post sleeve gastrectomy. She has lost almost 100 pounds total at this point. Minimal GERD symptoms. She takes omeprazole periodically. No pain. Objective - Vital Signs Vital signs: Vital Signs Temp 97.8 F 10/15/23 15:11 Pulse 63 10/15/23 15:11 Resp 16 10/15/23 15:11 BP 123/64 10/15/23 15:11 Pulse Ox FiO2 Intake & Output 10/14/23 10/15/23 10/15/23 18:59 06:59 18:59 Weight 78.471 kg - Exam Abdomen: Soft, nontender, nondistended Assessment/Plan (1) Morbid obesity Narrative/Plan: 38-year-old female doing well after previously gastrectomy. Continue dietary and exercise regimen. Check annual labs. Follow-up 3 months. Plan: Date: 10/15/23 Initial Weight: 110.223 kg Initial BMI: 40.4 Current Weight: 78.471 kg Current BMI: 28.8 Type of Surgery: Vertical Sleeve Gastrectomy Total Volume in Band: Previous Volume: Volume Removed: Volume Added: Band Size:
[2023-10-15 15:40] VITALS: BP 123/64; PULSE 63; RESP 16; TEMP 97.8; BMI 28.8
== END ==
LOC: BARWHC3 14:58
PROVIDERS: ATTEND Surgery
DX: K21.9 Gastro-esophageal reflux disease without esophagitis (principal); E66.01 Morbid (severe) obesity due to excess calories; Z71.3 Dietary counseling and surveillance; Z98.84 Bariatric surgery status; Z68.28 Body mass index [BMI] 28.0-28.9, adult
CPT/HCPCS: 99211

== ENCOUNTER → 2024-06-09 | Outpatient (CLI) | payer BC ==
[2024-06-09 11:01] LABS: Basophils # (A) 0.03 X 10*3/uL (0.00-0.10); Basophils % (A) 0.7 %; Eosinophils # (A) 0.15 X 10*3/uL (0.04-0.35); Eosinophils % (A) 3.3 %; HCT 40.2 % (37.2-46.3); HGB 13.3 g/dL (12.0-15.0); Lymphocytes # (A) 2.06 X 10*3/uL (0.90-5.00); Lymphocytes % (A) 45.5 %; MCH 30.1 pg (27.0-32.0); MCHC 33.1 g/dL (32.0-37.0); Mean Platelet Volume 10.9 FL (9.5-12.2); Monocytes # (A) 0.37 X 10*3/uL (0.20-1.00); Monocytes % (A) 8.2 %; NRBC Per 100 WBC 0 X 10*3/uL (0.00-0.01); Neutrophils # (A) 1.91 X 10*3/uL (1.80-7.70); Neutrophils % (A) 42.1 %; Platelet Count 239 X 10*3/uL (140-440); RBC 4.42 X 10*6/uL (4.10-5.20); WBC 4.53 X 10*3/uL (4.50-10.00)
[2024-06-09 11:12] LABS: % Iron Saturation 39.01 (12.00-45.00); ALT 13 U/L (8-44); AST 16 U/L (13-35); Albumin 4.4 g/dL (3.8-4.9); Albumin/Globulin Ratio 1.76 Ratio (1.60-3.17); Alkaline Phosphatase 69 U/L (41-126); BUN/Creat Ratio 14.33 Ratio (12.00-20.00); Blood Urea Nitrogen 12.9 mg/dL (9.0-27.0); Calcium 9.4 mg/dL (8.7-10.3); Carbon Dioxide 26.5 mmol/L (21.6-31.8); Chloride 107 mmol/L (96-109); Ferritin 51.6 ng/mL (10.0-291.0); Globulin 2.5 g/dL (1.6-3.3); Glucose 97 mg/dL (70-110); Iron 142 UG/DL (50-170); LDL Cholesterol,Calculated 63.8 mg/dL (0.0-131.0); Potassium 4.2 mmol/L (3.5-5.5); Sodium 142 mmol/L (135-145); Total Bilirubin 0.9 mg/dL (0.3-1.2); Total Iron Binding Capacity 364 UG/DL (228-460); Total Protein 6.9 g/dL (6.2-8.2)
[2024-06-11 06:28] LABS: Vitamin A 43 ug/dL (38-106)
== END | disposition home or self-care (01) ==
LOC: LABWHC1 07:23
PROVIDERS: ATTEND Nurse Practitioner Family
DX: Z00.00 Encounter for general adult medical examination without abnormal findings (principal); E66.3 Overweight; R53.83 Other fatigue; R41.3 Other amnesia
CPT/HCPCS: 36415; 80053; 80061; 82306; 82607; 82728; 82746; 83036; 83540; 83550; 84425; 84443; 84590; 85025; 86803

== ENCOUNTER → 2024-08-04 | Outpatient (CLI) | payer BC ==
--- NOTE | 2024-08-06 08:33 | MM ---
Reason for Exam: Screening (asymptomatic). Baseline mammogram. Patient History: Menarche at age 11. First Full-Term at age 27. Maternal grandmother had breast cancer under age 50. Mother had breast cancer under age 50. Last menstrual period: 07/05/2024 Risk Values: Agata 5 year model risk: 1.0%. NCI Lifetime model risk: 20.6%. Prior Study Comparison: Patient's first Mammogram. No prior studies available for comparison. Tissue Density: The breasts are heterogeneously dense, which may obscure small masses. Findings: Analyzed By CAD. Right breast: There is no suspicious group of microcalcifications or new suspicious mass. Left breast: There is no suspicious group of microcalcifications or new suspicious mass. Overall Assessment: Negative, BI-RAD 1 Management: Screening Mammogram of both breasts in [address] [facility] will attempt to contact patient to return for supplemental views and ultrasound if indicated. Patient should continue monthly self-breast exams. A clinical breast exam by your physician is recommended on an annual basis. This exam should not preclude additional follow-up of suspicious palpable abnormalities. Note on Agata scores and lifetime risk: 1. A Agata score greater than 3% is considered moderate risk. If this is the case, consider specialist referral to assess eligibility for a risk reducing agent. 2. If overall lifetime risk for the development of breast cancer is 20% or higher, the patient may qualify for future screening with alternating mammogram and breast MRI. [facility], , 08/06/2024 8:30 AM. Electronically signed and approved by: Azael Ch DO
== END | disposition home or self-care (01) ==
LOC: RADMAMWWP 16:40
PROVIDERS: ATTEND Family Medicine
DX: Z12.31 Encounter for screening mammogram for malignant neoplasm of breast (principal); Z80.3 Family history of malignant neoplasm of breast; R92.333 Mammographic heterogeneous density, bilateral breasts
CPT/HCPCS: 77063; 77067

== ENCOUNTER → 2024-09-21 | Outpatient (CLI) | payer BC ==
--- NOTE | 2024-09-21 17:50 | MR ---
EXAMINATION TYPE: MR brain wo con DATE OF EXAM: 09/21/2024 5:27 PM COMPARISON: None. 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 No gadolinium was given. FINDINGS: The ledesma-white junctions, ventricular system, basal cisterns appear unremarkable. Minimal scattered d eep white matter changes including 3 mm focus series 602 image 19 the right frontal lobe No evidence for active demyelination. Midline structures show no abnormality. Diffusion-weighted imaging shows no evidence of restricted diffusion. The susceptibility weighted images do not reveal any evidence for micro-hemorrhage. The bone marrow signal is within normal limits. Paranasal sinuses and mastoid air cells: No significant paranasal sinus disease. Visualized orbits: Orbital contents are intact. IMPRESSION: 1. No evidence of intracranial mass or acute/subacute infarct. 2. No evidence for active demyelination. Single focus of white matter change in right frontal lobe wh ich is nonspecific.. [facility], , 09/21/2024 5:47 PM
== END | disposition home or self-care (01) ==
LOC: RADMRIMAIN 16:52
PROVIDERS: ATTEND Psychiatry & Neurology Neurology
DX: G37.9 Demyelinating disease of central nervous system, unspecified (principal); R41.89 Other symptoms and signs involving cognitive functions and awareness
CPT/HCPCS: 70551

== ENCOUNTER → 2024-09-26 | Outpatient (CLI) | payer BC ==
[2024-09-28 13:12] LABS: Zinc, Serum 60 ug/dL (60-130)
[2024-09-30 10:11] LABS: Vit B1(Thiamine) 33 ug/L (38-122)
== END | disposition home or self-care (01) ==
LOC: LABWHC1 09:17
PROVIDERS: ATTEND Psychiatry & Neurology Neurology
DX: Z00.00 Encounter for general adult medical examination without abnormal findings (principal); E63.8 Other specified nutritional deficiencies; R41.3 Other amnesia; Z90.3 Acquired absence of stomach [part of]
CPT/HCPCS: 36415; 82306; 82607; 82747; 84207; 84425; 84630